=== PATIENT | male | born 1995 | race Two or more races ===

== ENCOUNTER 2025-02-26 10:18 | Emergency (ER) | payer MEDICAID ==
[~2025-02-26] VITALS: Ht 172.7 cm; Wt 56.7 kg
[2025-02-26 10:35] VITALS: BP 112/68; TEMP 97.9; O2SAT 100
[2025-02-26] MEDS ORDERED: IBUPROFEN 600 MG TABLET ONE (11:15)
[2025-02-26] MEDS ORDERED: EMTR1TAB6 PO (11:16)
[2025-02-26] MEDS ORDERED: DOLU50TA PO (11:16)
[2025-02-26 17:47] LABS: HIV-1 p24 ANTIGEN NON REACTIVE (NONREACTIVE); HIV-1/2 ANTIBODY NON REACTIVE (NONREACTIVE)
[2025-02-27 05:10] LABS: HEPATITIS B SURFACE AB (QUAL) Reactive (.)
== END 2025-02-26 11:36 | disposition home or self-care (01) ==
LOC: ER 10:21
DX: S61.32 Laceration with foreign body of finger with damage to nail (principal); Z77.21 Contact with and (suspected) exposure to potentially hazardous body fluids; Z79.624 Long term (current) use of inhibitors of nucleotide synthesis; Z88.7 Allergy status to serum and vaccine; W46.0XXA Contact with hypodermic needle, initial encounter; Y93.89 Activity, other specified; Y92.89 Other specified places as the place of occurrence of the external cause; Y99.0 Civilian activity done for income or pay
CPT/HCPCS: 36415; 86706; 86803; 87806